=== PATIENT | male | born 1945 | race African-American/Black ===

== ENCOUNTER 2019-12-04 10:41 | Emergency (ER) | payer OTHER, MEDICAID ==
[~2019-12-04] VITALS: Ht 177.8 cm; Wt 86.0 kg
[2019-12-04] MEDS ORDERED: CARBIDOPA/LEVODOPA 25/250MG TABLET PO ONE (11:15)
[2019-12-04 11:40] LABS: BASOPHILS % 0.7 % (0.0-2.0); EOSINOPHILS % 0.4 % (0.0-5.0); HEMATOCRIT. 40.7 % (42.0-52.0); HEMOGLOBIN. 13.4 g/dL (14.0-18.0); LYMPHOCYTES % 21.8 % (20.0-50.0); MEAN CORPUSCULAR HEMOGLOBIN 29.5 pg (28.0-32.0); MEAN CORPUSCULAR VOLUME 89.5 fL (80.0-94.0); MEAN PLATELET VOLUME 9.7 fl (7.4-10.4); MONOCYTES % 7.9 % (2.0-8.0); NEUTROPHILS % 69.2 % (40.0-76.0); PLATELET 153 x1000/uL (130-400); RED BLOOD CELL COUNT 4.54 mill/uL (4.7-6.1); RED CELL DISTRIBUTION WIDTH 13.9 % (11.6-14.6)
[2019-12-04 11:44] LABS: CHLORIDE 107 mEq/L (98-107)
[2019-12-04 11:45] LABS: INR 1.1; PROTHROMBIN TIME 11.4 sec (9.6-11.0)
[2019-12-04] MEDS ORDERED: ASPIRIN 325MG EC TABLET PO ONE (12:30)
[2019-12-04 13:25] LABS: CLARITY URINE CLEAR (CLEAR); COLOR URINE DARK YELLOW (YELLOW); KETONES URINE TRACE (NEGATIVE); LEUKOCYTE ESTERASE URINE NEGATIVE (NEGATIVE); NITRITE URINE NEGATIVE (NEGATIVE); OCCULT BLOOD URINE NEGATIVE (NEGATIVE); PH URINE 6.5 (4.5-8.0); PROTEIN URINE NEGATIVE (NEGATIVE); SPECIFIC GRAVITY URINE 1.016 (1.005-1.030)
[2019-12-04 14:31] VITALS: BP 156/88
== END 2019-12-04 15:05 | disposition short-term general hospital (02) ==
LOC: ER 10:41 → CANBEDREQ 14:34 → ER 15:05
DX: R55 Syncope and collapse (principal); R07.89 Other chest pain; G20 Parkinson's disease
CPT/HCPCS: 36415; 71045; 80053; 81003; 83880; 84484; 85025; 93005; 99285